=== PATIENT | male | born 1955 | race Caucasian/White ===

== ENCOUNTER → 2017-05-05 | Outpatient (CLI) | payer BC ==
--- NOTE | 2017-05-05 14:04 | Diagnostic Imaging Report ---
PROCEDURE:X-RAY ABDOMEN - KUB COMPARISON:None. INDICATIONS:CALCULUS OF KIDNEY FINDINGS: One view the abdomen (AP supine). No dilated loops of bowel or abnormal air-fluid levels patterns. No free air underneath the diaphragm. Visualized portions of the lung bases are clear. Coarse calcifications overlie the expected region of the prostate. No definite calcifications are seen overlying the urinary system. Five non-rib bearing lumbar type vertebral bodies identified. CONCLUSION: No radiopaque stones overlying the urinary tracts. Nonobstructive bowel gas pattern. Dictated by: Doron Garibay M.D. on 05/05/2017 at 14:12 Electronically approved by: Doron Garibay M.D. on 05/05/2017 at 14:12
== END ==
LOC: RAD 12:45
PROVIDERS: ATTEND Urology
DX: N20.0 Calculus of kidney (principal)
CPT/HCPCS: 74018

== ENCOUNTER → 2017-08-08 | Outpatient (CLI) | payer BC ==
--- NOTE | 2017-08-08 14:01 | Diagnostic Imaging Report ---
PROCEDURE:X-RAY ABDOMEN - KUB COMPARISON:Abdomen one view 05/05/2017. INDICATIONS:CALCULI OF KIDNEY FINDINGS: There is a non-obstructed bowel-gas pattern. There are no calcifications projected over the renal shadows, expected course of the ureters or bladder. There are no acute osseous abnormalities. The lung bases are clear. CONCLUSION: No acute radiographic abnormality. Dictated by: Chandler Hale M.D. on 08/08/2017 at 14:03 Electronically approved by: Chandler Hale M.D. on 08/08/2017 at 14:03
== END ==
LOC: RAD 13:11
PROVIDERS: ATTEND Urology
DX: N39.0 Urinary tract infection, site not specified (principal); R31.21 Asymptomatic microscopic hematuria
CPT/HCPCS: 74018

== ENCOUNTER → 2018-05-22 | Outpatient (CLI) | payer MEDICARE ==
--- NOTE | 2018-05-22 15:56 | Diagnostic Imaging Report ---
Exam: KUB. Clinical History: Calculus of kidney Comparison: None Findings: Frontal view of the abdomen demonstrates a nonobstructive bowel gas pattern with moderate retained stool. Punctate stones over the mid left kidney. Likely coarse calcifications in the prostate gland. Impression: Punctate stones over the mid left kidney. Likely coarse calcifications in the prostate gland. Signed by: Dr. Billy Marcial M.D. on 05/22/2018 3:52 PM
== END ==
LOC: RAD 13:03
PROVIDERS: ATTEND Urology
DX: N20.0 Calculus of kidney (principal)
CPT/HCPCS: 74018

== ENCOUNTER → 2018-11-23 | Outpatient (CLI) | payer MEDICARE ==
--- NOTE | 2018-11-23 13:48 | Diagnostic Imaging Report ---
Exam: KUB Comparison: May 22, 2018 Clinical history: Renal calculus Findings: 4 mm calcific density structures overlying the left mid kidneys again noted without interval change in size of this may represent nephrolithiasis. There is nonobstructive bowel gas pattern. Coarse calcifications again noted at the base of the bladder which may represent prostate calcification. Phleboliths are also seen in bilateral lower pelvic regions. Impression: 1. Stable appearing subcentimeter left nephrolithiasis. Signed by: Dr. Luis Enrique Pinon MD on 11/23/2018 1:45 PM
== END ==
LOC: RAD 13:13
PROVIDERS: ATTEND Urology
DX: N20.0 Calculus of kidney (principal)
CPT/HCPCS: 74018

== ENCOUNTER → 2019-06-02 | Outpatient (CLI) | payer MEDICARE ==
--- NOTE | 2019-06-02 14:24 | Diagnostic Imaging Report ---
Exam: KUB-2 views Clinical History: Renal calculus. Comparison: KUB 11/25/2018. Findings: Similar appearance of punctate calcifications overlying the left kidney, measuring up to 2 mm. Calcified phleboliths overlie the pelvis. Likely coarse calcifications in the prostate gland. Nonobstructive bowel gas pattern. Impression: Unchanged punctate left renal stones. Signed by: Dr. Walter Sierra MD on 06/02/2019 2:21 PM
== END ==
LOC: RAD 13:12
PROVIDERS: ATTEND Urology
DX: N20.0 Calculus of kidney (principal)
CPT/HCPCS: 74018

== ENCOUNTER → 2020-01-10 | Outpatient (CLI) | payer MEDICARE | LOC: RAD 10:41 | PROVIDERS: ATTEND Urology | DX: N20.0 Calculus of kidney (principal) | CPT/HCPCS: 74018 ==

== ENCOUNTER → 2020-07-05 | Outpatient (CLI) | payer MEDICARE | LOC: RAD 10:34 | PROVIDERS: ATTEND Urology | DX: N20.0 Calculus of kidney (principal) | CPT/HCPCS: 74018 ==